=== PATIENT | female | born 1990 | race American Indian/Alaskan Native ===

== ENCOUNTER 2017-07-14 11:22 | Emergency (ER) | payer OTHER ==
[~2017-07-14] VITALS: Ht 154.9 cm; Wt 63.5 kg
[~2017-07-14 11:22] MED LIST: ALBUTEROL SULF8.5 GM INH; VITAFOL-OB+DHA1 EACH PO
[2017-07-14] MEDS ORDERED: HYDROXYZINE HCL25 MG PO (15:07)
== END 2017-07-14 15:27 | disposition home or self-care (01) ==
LOC: ED 11:22
DX: F41.9 Anxiety disorder, unspecified (principal); Z98.818 Other dental procedure status
CPT/HCPCS: 81001; 84703; 99283

== ENCOUNTER 2018-11-20 07:48 | Inpatient (IN) | payer OTHER ==
[~2018-11-20] VITALS: Ht 154.9 cm; Wt 107.0 kg
--- NOTE | ~2018-11-20 | OR ---
[facility] [address] [place], [place] [address] Draft DATE OF OPERATION: 11/21/2018 SURGEON: Mariposa Leach MD SUPERVISOR [employer]: Litzy Abdullahi DO PREOPERATIVE DIAGNOSES: 1. Term . 2. Previous section. POSTOPERATIVE DIAGNOSES: 1. Term . 2. Previous section. 3. Delivered. PROCEDURES PERFORMED: Repeat section with low segment transverse uterine incision and lysis of adhesions. ANESTHESIA: Spinal. ESTIMATED BLOOD LOSS: 650 mL. DRAINS: Stone catheter. INDICATIONS AND FINDINGS: The patient is a 28-year-old female, 2, para 1, admitted at 39 weeks for a repeat section. She had undergone one prior section, complicated by hemorrhage with a Bakri balloon placement and transfusion of 2 units of blood. This has been complicated primarily by her obesity and excess weight gain. At the time of surgery, she was delivered of a little boy via lower segment transverse uterine incision with Apgars of 9 and 9 and a weight of 8 pounds and 4 ounces. The baby was in the ROP position. The lower uterine segment was extremely thin. There were adhesions of the subfascial layer. There were also adhesions of the omentum to the anterior abdominal wall. PATIENT NAME: MINAL LEONE OPERATIVE REPORT DATE OF : 89 REPORT #: [id number] PHYSICIAN: MARIPOSA LEACH MD PCP: RAZA GONZALEZ NP REPORT IS CONFIDENTIAL AND NOT TO BE RELEASED WITHOUT AUTHORIZATION [facility] [address] [place], [place] [address] Draft DESCRIPTION OF PROCEDURE: The patient was prepped and draped in the supine position. A repeat Pfannenstiel skin incision was made and carried down through the fascia and the incision extended laterally. The inferior and superior fascial flaps were created with some difficulty given the scarring. The muscles were sharply divided and the peritoneum opened sharply and the incision extended superiorly and inferiorly. Following this, the omental adhesions were noted and these were grasped with Leanne clamps, divided with Bolanos scissors, and free ties of 2-0 chromic were used to divide these. When the omentum was free of the peritoneum, the Prem retractor could be placed. The lower uterine segment was extremely thin. An incision was made just above the peritoneal reflection and the baby delivered with the above findings and handed off to the pediatric staff in attendance. The placenta was removed manually and the uterus explored with a lap tape assuring no remaining fragments. The edges of the incision were identified and the uterus was closed in 2 layers using #0 Monocryl. The first layer was a running locking stitch. There was some tearing of that lower segment given the paper-thin nature of that lower aspect of the incision. A second layer was placed, which did correct the tearing and this was placed in a vertical imbricating manner. An additional suture was required near the left angle for control of bleeding as there was a small hematoma in that area. The abdomen was then copiously irrigated, inspected and there was good hemostasis noted. The retractor was removed and the peritoneum identified. A few more adhesions of the omentum were identified and these were divided with the Leanne clamps and Bolanos scissors and free tied with a 2-0 Vicryl as well. At this point, an ACell graft was laid over the lower segment to aid in healing and the peritoneum was closed with a running suture of 3-0 Vicryl. The muscles were brought together in the midline with interrupted sutures of #0 Vicryl. There were bleeding points under the right upper fascia and right upper muscle, which required several [id number] of #0 Vicryl to control bleeding. These appeared to be perforators. Following this, the muscles were irrigated and hemostasis was noted. However, given the difficulty maintaining the hemostasis, Merlin was placed over the muscles in order to help with hemostasis as well. This was followed by ACell powder to aid in healing. The fascia was closed from each angle to midline with a running suture of #0 Vicryl. The subcutaneous tissue was irrigated and bleeding points controlled with cautery. The Merlin was also used in the subcu area to aid in hemostasis. The deep space was closed with interrupted sutures of 3-0 Vicryl. The skin was closed with young. All sponge and needle counts were correct. She tolerated the procedure well and was taken to the recovery room in good condition. Mariposa Leach MD PATIENT NAME: MINAL LEONE OPERATIVE REPORT DATE OF : [birth year] REPORT #: [id number] PHYSICIAN: MARIPOSA LEACH MD PCP: RAZA GONZALEZ NP REPORT IS CONFIDENTIAL AND NOT TO BE RELEASED WITHOUT AUTHORIZATION [facility] [address] [place] [id number] Draft PJW/MODL /[id number] cc: Litzy Abdullahi DO [facility] Copies: [facility] ~ PATIENT NAME: KAMILA STEWARTMINAL OPERATIVE REPORT DATE OF : 89 REPORT #: [id number] PHYSICIAN: MARIPOSA LEACH MD PCP: RAZA GONZALEZ NP REPORT IS CONFIDENTIAL AND NOT TO BE RELEASED WITHOUT AUTHORIZATION
[~2018-11-20 07:48] MED LIST changes: +HYDROXYZINE HCL25 MG PO
--- NOTE | 2018-11-21 10:22 | NUR ---
11/21/18 1022 Yoanna Harrison 1005- PT ARRIVES TO [facility] ROOM 105 FROM OR ON RA. PT AWAKE AND ORIENTED AND RESPONSIVE. PT REPORTS SOME MILD CRAMPING IN ABDOMEN. FF @ u WITH SCANT BLEEDING NOTED. RA SATS >90%. SPINAL LEVEL AT T2. 1015- PT REPORTS MILD ITCHING. BABY SKIN TO SKIN. PT HOB INCREASED. RA SATS >90%
--- NOTE | 2018-11-22 09:40 | PR ---
[facility] [address] [facility] [place], [place] [address] Signed PP Progress Notes Datetime Report Generated by YI: 11/22/2018 09:40 SUBJECTIVE: [id number] Pain: Within normal limits Nausea/Vomiting: Denies Flatus: No Vital Signs: [id number] Vital Signs: Reviewed; Within Normal Limits EXAM: [id number] Cardiovascular: Normal Respiratory: Normal Abdomen/Uterus: Abnormal Lochia: Normal Vulva/Perineum: Not Done Breasts: Not Done CVA Tenderness: Not Done Extremities: Normal Incision: Normal Progress: Abnormal Exam Comments: Abdomen with active BS. Fundus firm, NT @ U-1. H/H 8.9/29, WBC 13.1, plat 343k IMPRESSION/PLAN/PROCEDURES: [id number] Impression: Normal progression Other Plans: ambulate, D/C roa, shower Progress Notes: Doing well overall. Will increase activity. Signing Physician: Jono Leach MD Copies: ~ *Electronically Signed* 11/22/18 0940 JONO LEACH MD PATIENT NAME: KAMILA STEWARTMINAL PROGRESS NOTE DATE OF : 89 PHYSICIAN: JONO LEACH MD RPT #: [id number] REPORT IS CONFIDENTIAL AND NOT TO BE RELEASED WITHOUT AUTHORIZATION
--- NOTE | 2018-11-23 10:35 | PR ---
[facility] [address] [facility] [place], [place] [address] Signed PP Progress Notes Datetime Report Generated by YI: 11/23/2018 10:35 SUBJECTIVE: [id number] Pain: Within normal limits Nausea/Vomiting: Denies Flatus: Yes Bowel Movement: No Vital Signs: [id number] Vital Signs: Reviewed; Within Normal Limits EXAM: [id number] Cardiovascular: Normal Respiratory: Normal Abdomen/Uterus: Abnormal Lochia: Normal Vulva/Perineum: Not Done Breasts: Not Done CVA Tenderness: Not Done Extremities: Normal Incision: Normal Progress: Abnormal Exam Comments: Abdomen with active BS. Fundus firm, NT @ U-1. IMPRESSION/PLAN/PROCEDURES: [id number] Impression: Normal progression Plan: Remove young; Discharge Other Plans: ambulate, D/C roa, shower Procedures: None Progress Notes: Doing well. She is ready for D/C. Signing Physician: Mariposa Leach MD Copies: ~ *Electronically Signed* 11/23/18 1035 MARIPOSA LEACH MD PATIENT NAME: KAMILA STEWARTMINAL PROGRESS NOTE DATE OF : [birth year] PHYSICIAN: MARIPOSA LEACH MD RPT #: [id number] REPORT IS CONFIDENTIAL AND NOT TO BE RELEASED WITHOUT AUTHORIZATION
== END 2018-11-23 14:35 | disposition home or self-care (01) | DRG 788 ==
LOC: FBC 11-21 05:06
PROVIDERS: ADMIT Obstetrics & Gynecology
PROC: 10D00Z1 Extraction of Products of Conception, Low, Open Approach (ICD-10-PCS; principal; 2018-11-21 09:00)
DX: O34.211 Maternal care for low transverse scar from previous cesarean delivery (principal); N85.8 Other specified noninflammatory disorders of uterus; Z3A.39 39 weeks gestation of pregnancy; Z37.0 Single live birth; O99.344 Other mental disorders complicating childbirth; F41.9 Anxiety disorder, unspecified; O99.315 Alcohol use complicating the puerperium; F10.11 Alcohol abuse, in remission; O99.284 Endocrine, nutritional and metabolic diseases complicating childbirth; E55.9 Vitamin D deficiency, unspecified; O99.214 Obesity complicating childbirth; E66.9 Obesity, unspecified; O26.03 Excessive weight gain in pregnancy, third trimester; Z79.899 Other long term (current) drug therapy; Z87.891 Personal history of nicotine dependence; Z87.440 Personal history of urinary (tract) infections
CPT/HCPCS: 01961; 36415; 85027; J0690; J1170; J2250; J2274; J2300; J2370; J2590; J7120

== ENCOUNTER 2021-07-07 14:59 | Emergency (ER) | payer OTHER ==
[~2021-07-07] VITALS: Ht 154.9 cm; Wt 106.6 kg
== END 2021-07-07 23:15 | disposition home or self-care (01) ==
LOC: ED 14:59
DX: U07.1 COVID-19 (principal); J45.909 Unspecified asthma, uncomplicated; Z79.899 Other long term (current) drug therapy; Z23 Encounter for immunization
CPT/HCPCS: 94640; 99283-25; M0243; Q0244

== ENCOUNTER 2024-08-27 17:58 | Emergency (ER) | payer OTHER ==
[~2024-08-27] VITALS: Ht 154.9 cm; Wt 88.0 kg
[~2024-08-27 17:58] MED LIST changes: +IMODIUM A-D2 M2 PO; +MACROBID 100 M100 MG PO; +ONDANSETRON ODT4 MG PO
--- OUTSIDE RECORDS SUMMARY | 2024-08-27 18:04 | XMS ---
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 E.D. VISIT COUNT (12 MO.) 3 DWAIN Guerrero TOTAL 3 NOTE: Visits indicate total known visits. 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
[2024-08-27] MEDS ORDERED: KETOROLAC TROMETHAMINE 60 MG/2 ML VIAL IM ONE (20:00)
[2024-08-27] MEDS ORDERED: TRAMADOL HCL50 MG PO (20:46)
[2024-08-27 21:00] VITALS: BP 102/87
[2024-08-27] MEDS ORDERED: TRAMADOL HCL 50 MG HOME.PACK PO ONE (21:00)
== END 2024-08-27 21:01 | disposition home or self-care (01) ==
LOC: ED 17:58
DX: S83.92XA Sprain of unspecified site of left knee, initial encounter (principal); S83.91XA Sprain of unspecified site of right knee, initial encounter; M25.462 Effusion, left knee; W17.89XA Other fall from one level to another, initial encounter; Y99.0 Civilian activity done for income or pay; J45.909 Unspecified asthma, uncomplicated; Z79.899 Other long term (current) drug therapy
CPT/HCPCS: 73560; 73562; 96372; 99283; A9270; J1885